=== PATIENT | female | born 1990 | race Hispanic/Latino ===

== ENCOUNTER 2022-07-23 19:27 | Emergency (ER) | payer SELFPAY ==
[~2022-07-23] VITALS: Ht 157.5 cm; Wt 72.6 kg
[2022-07-23] MEDS ORDERED: IBUPROFEN600 MG PO (20:08)
[2022-07-23] MEDS ORDERED: TAMIFLU75 MG PO (20:08)
== END 2022-07-23 20:20 | disposition home or self-care (01) ==
LOC: ER 19:55
DX: R05.9 Cough, unspecified (principal); R09.89 Other specified symptoms and signs involving the circulatory and respiratory systems; R53.81 Other malaise
CPT/HCPCS: 99283